=== PATIENT | male | born 1960 | race Two or more races ===

== ENCOUNTER → 2018-01-10 | Outpatient (CLI) | payer BC ==
[~2018-01-10] VITALS: Ht 180.3 cm; Wt 88.5 kg
[~2018-01-10] MED LIST: NITROGLYCERIN SPRAY/4.9GM CAN TL NR
[2018-01-10 09:50] LABS: BASOPHILS % 0.3 % (0.0-2.0); EOSINOPHILS % 1.2 % (0.0-5.0); HEMATOCRIT. 46.6 % (42.0-52.0); HEMOGLOBIN. 16.4 g/dL (14.0-18.0); LYMPHOCYTES % 31.5 % (20.0-50.0); MEAN CORPUSCULAR HEMOGLOBIN 31.3 pg (28.0-32.0); MEAN CORPUSCULAR VOLUME 88.8 fL (80.0-94.0); MEAN PLATELET VOLUME 8.6 fl (7.4-10.4); MONOCYTES % 7.9 % (2.0-8.0); NEUTROPHILS % 59.1 % (40.0-76.0); PLATELET 168 x1000/uL (130-400); RED BLOOD CELL COUNT 5.25 mill/uL (4.7-6.1); RED CELL DISTRIBUTION WIDTH 14.4 % (11.6-14.6)
[2018-01-10 10:35] LABS: CHLORIDE 105 mEq/L (98-107)
[2018-01-10 10:45] LABS: C REACTIVE PROTEIN QUANT 2.1 mg/L (0.0-3.0); HDL CHOLESTEROL 39 mg/dL (40-59); LDL CHOLESTEROL 127 mg/dL (5-100); T4 FREE 0.95 ng/dL (0.76-1.46)
== END | disposition home or self-care (01) ==
LOC: RAD 08:41 → EEVIPCON 08:41
PROVIDERS: ATTEND Internal Medicine Critical Care Medicine
DX: K76.0 Fatty (change of) liver, not elsewhere classified (principal); R07.9 Chest pain, unspecified; Z79.899 Other long term (current) drug therapy
CPT/HCPCS: 36415; 76770; 80053; 80061; 83036; 84153; 84439; 84443; 84481; 85025; 86140

== ENCOUNTER → 2019-04-09 | Outpatient (CLI) | payer BC | END | disposition home or self-care (01) | LOC: RAD 10:50 | PROVIDERS: ATTEND Internal Medicine Critical Care Medicine | DX: R22.1 Localized swelling, mass and lump, neck (principal) | CPT/HCPCS: 76536 ==

== ENCOUNTER → 2020-03-01 | Outpatient (CLI) | payer BC ==
[2020-03-01 10:58] LABS: BASOPHILS % 0.6 % (0.0-2.0); EOSINOPHILS % 2.7 % (0.0-5.0); HEMATOCRIT. 49.3 % (42.0-52.0); HEMOGLOBIN. 17.1 g/dL (14.0-18.0); LYMPHOCYTES % 40.1 % (20.0-50.0); MEAN CORPUSCULAR HEMOGLOBIN 31.1 pg (28.0-32.0); MEAN CORPUSCULAR VOLUME 89.6 fL (80.0-94.0); MEAN PLATELET VOLUME 8.8 fl (7.4-10.4); MONOCYTES % 8.6 % (2.0-8.0); PLATELET 155 x1000/uL (130-400); RED BLOOD CELL COUNT 5.51 mill/uL (4.7-6.1); RED CELL DISTRIBUTION WIDTH 14.5 % (11.6-14.6)
[2020-03-01 11:41] LABS: PROSTRATE SPECIFIC AG TOTAL 1.89 ng/mL (0.0-4.0)
[2020-03-01 12:32] LABS: CHLORIDE 105 mEq/L (98-107)
[2020-03-01 12:38] LABS: LDL CHOLESTEROL 141 mg/dL (5-100)
[2020-03-01 12:41] LABS: HDL CHOLESTEROL 40 mg/dL (40-59)
[2020-03-01 12:42] LABS: TOTAL IRON BINDING CAPACITY 380 ug/dL (250-450)
[2020-03-01 12:48] LABS: T4 FREE 1.06 ng/dL (0.76-1.46)
== END | disposition home or self-care (01) ==
LOC: LAB 09:58
PROVIDERS: ATTEND Internal Medicine Critical Care Medicine
DX: I10 Essential (primary) hypertension (principal); E11.9 Type 2 diabetes mellitus without complications
CPT/HCPCS: 36415; 80053; 80061; 82248; 82728; 83036; 83540; 83550; 84153; 84439; 84443; 84479; 85025; 86141; G0103

== ENCOUNTER → 2022-11-17 | Outpatient (CLI) | payer BC ==
[2022-11-17 09:35] LABS: BASOPHILS % 0.6 % (0.0-2.0); EOSINOPHILS % 2.7 % (0.0-5.0); HEMATOCRIT. 47.6 % (42.0-52.0); HEMOGLOBIN. 16.1 g/dL (14.0-18.0); LYMPHOCYTES % 34.6 % (20.0-50.0); MEAN CORPUSCULAR HEMOGLOBIN 30.1 pg (28.0-32.0); MEAN CORPUSCULAR VOLUME 88.9 fL (80.0-94.0); MEAN PLATELET VOLUME 8.1 fl (7.4-10.4); MONOCYTES % 7.7 % (2.0-8.0); NEUTROPHILS % 54.4 % (40.0-76.0); PLATELET 156 x1000/uL (130-400); RED BLOOD CELL COUNT 5.35 mill/uL (4.7-6.1); RED CELL DISTRIBUTION WIDTH 14.2 % (11.6-14.6)
[2022-11-17 10:19] LABS: CHLORIDE 109 mEq/L (98-107)
[2022-11-17 10:35] LABS: HDL CHOLESTEROL 41 mg/dL (40-59); LDL CHOLESTEROL 132 mg/dL (5-100)
[2022-11-18 13:06] LABS: VITAMIN D 1-25 DIHYDROXY 39.1 pg/mL (24.8-81.5)
== END | disposition home or self-care (01) ==
LOC: LAB 06:54
PROVIDERS: ATTEND Internal Medicine Critical Care Medicine
DX: A02.0 Salmonella enteritis (principal)
CPT/HCPCS: 36415; 80053; 80061; 82652; 83036; 84153; 84443; 85025; G0103